=== PATIENT | male | born 1975 | race Caucasian/White ===

== ENCOUNTER → 2021-02-16 | Outpatient (CLI) | payer OTHER ==
[~2021-02-16] MED LIST: ASPIRIN EC81 MG PO; ATORVASTATIN CA20 MG PO; ATORVASTATIN CA40 MG PO; BLOOD PRESSURE MC; CARVEDILOL6.25 MG PO; DEX4 GLUCOSE4 GM PO; HUMALOG 10100 UNITS/ SC; HYDROCHLOROTHIA25 MG PO; LEVOTHYROXINE50 MCG PO; LISINOPRIL40 MG PO; METFORMIN HCL500 MG PO; NITROGLYCERIN0.4 MG SL; [UNRECOGNIZED DRUG - OTHER] MC
== END ==
LOC: EXRD 10:12
DX: M79.671 Pain in right foot (principal); G89.29 Other chronic pain; M50.322 Other cervical disc degeneration at C5-C6 level
CPT/HCPCS: 72050; 73630

== ENCOUNTER → 2021-03-30 | Outpatient (CLI) | payer OTHER | LOC: KOH-I 09:08 | DX: M25.571 Pain in right ankle and joints of right foot (principal); M79.671 Pain in right foot | CPT/HCPCS: 73610; 73630 ==

== ENCOUNTER 2021-07-03 14:07 | Emergency (ER) | payer OTHER ==
[2021-07-03] MEDS ORDERED: CYCLOBENZAPRINE10 MG PO (16:54)
== END 2021-07-03 17:04 | disposition home or self-care (01) ==
LOC: ER1 14:07
DX: S46.912A Strain of unspecified muscle, fascia and tendon at shoulder and upper arm level, left arm, initial encounter (principal); S39.011A Strain of muscle, fascia and tendon of abdomen, initial encounter; S80.01XA Contusion of right knee, initial encounter; E11.9 Type 2 diabetes mellitus without complications; I11.9 Hypertensive heart disease without heart failure; W19.XXXA Unspecified fall, initial encounter
CPT/HCPCS: 73030; 73502; 73562; 96372; 99284; J1885; J2360

== ENCOUNTER → 2021-08-04 | Outpatient (CLI) | payer BC ==
[~2021-08-04] MED LIST changes: +CYCLOBENZAPRINE10 MG PO
== END ==
LOC: KOH-I 08:34
DX: R79.89 Other specified abnormal findings of blood chemistry (principal); R59.0 Localized enlarged lymph nodes; K80.20 Calculus of gallbladder without cholecystitis without obstruction
CPT/HCPCS: 76536; 76700

== ENCOUNTER → 2021-09-25 | Day surgery (SDC) | payer BC ==
[~2021-09-25] MED LIST changes: +ATORVASTATIN CA80 MG PO; +EUTHYROX75 MCG PO; +FUROSEMIDE20 MG PO; +HUMALOG100 UNIT/1 SC; +ISOSORBIDE MONO60 MG PO; +JARDIANCE10 MG PO; +METFORMIN HCL1000 M1 PO; +METHOCARBAMOL500 MG PO; +OMEPRAZOLE40 MG PO; +PRAMIPEXOLE0.125 MG PO
== END | disposition home or self-care (01) ==
LOC: OR 07:21
DX: K31.9 Disease of stomach and duodenum, unspecified (principal); K57.30 Diverticulosis of large intestine without perforation or abscess without bleeding; K21.9 Gastro-esophageal reflux disease without esophagitis; I25.10 Atherosclerotic heart disease of native coronary artery without angina pectoris; I11.0 Hypertensive heart disease with heart failure; I50.22 Chronic systolic (congestive) heart failure; E11.42 Type 2 diabetes mellitus with diabetic polyneuropathy; E03.9 Hypothyroidism, unspecified; E78.2 Mixed hyperlipidemia; G25.81 Restless legs syndrome; Z79.82 Long term (current) use of aspirin; Z79.4 Long term (current) use of insulin; Z79.899 Other long term (current) drug therapy; Z20.822 Contact with and (suspected) exposure to COVID-19
CPT/HCPCS: 82962; J2250; J2704; J7120

== ENCOUNTER 2021-10-02 22:35 | Emergency (ER) | payer BC ==
[2021-10-02 23:29] LABS: HEMOGLOBIN 17.4 gm/dl (14.0-17.5); RED BLOOD COUNT 5.85 M/UL (4.20-5.50); WHITE BLOOD COUNT 12.2 K/UL (4.5-11.0)
[2021-10-02 23:53] LABS: BUN/CREATININE RATIO 17 (0-10)
== END 2021-10-03 04:15 | disposition home or self-care (01) ==
LOC: ER1 22:35
PROVIDERS: Physician Assistant
DX: R07.9 Chest pain, unspecified (principal); I11.0 Hypertensive heart disease with heart failure; I50.9 Heart failure, unspecified; E78.5 Hyperlipidemia, unspecified; F17.200 Nicotine dependence, unspecified, uncomplicated
CPT/HCPCS: 71045; 80053; 82550; 82553; 83874; 83880; 84439; 84443; 84484; 85025; 85379; 85610; 85730; 93005; 96374; 99285

== ENCOUNTER → 2022-01-26 | Outpatient (CLI) | payer BC | LOC: KOH-I 13:37 | DX: I83.892 Varicose veins of left lower extremity with other complications (principal) | CPT/HCPCS: 93971 ==

== ENCOUNTER → 2022-02-05 | Outpatient (CLI) | payer BC | LOC: HEART 5 15:42 | DX: R06.00 Dyspnea, unspecified (principal) | CPT/HCPCS: 95012 ==

== ENCOUNTER → 2022-03-14 | Outpatient (CLI) | payer BC | LOC: HEART 5 10:22 | DX: R06.02 Shortness of breath (principal) | CPT/HCPCS: 71046; 94010; 94729 ==